=== PATIENT | male | born 1955 | race Caucasian/White ===

== ENCOUNTER → 2016-05-20 | Outpatient (CLI) | payer BC ==
[~2016-05-20] MED LIST: ACET-1256 PO; ACET-749 PO; ATOR-24 PO; CLC100 PO; DTR5 PO; HYDR25TA4 PO; MULT-506 PO
== END | disposition home or self-care (01) ==
LOC: C.LABMFLN 12:23
PROVIDERS: ATTEND Urology
DX: C61 Malignant neoplasm of prostate (principal)

== ENCOUNTER → 2016-09-30 | Outpatient (CLI) | payer BC | END | disposition home or self-care (01) | LOC: C.LABMFLN 16:14 | PROVIDERS: ATTEND Urology | DX: C61 Malignant neoplasm of prostate (principal) ==